=== PATIENT | female | born 1945 | race Caucasian/White ===

== ENCOUNTER 2017-06-30 09:38 | Outpatient (CLI) | payer MEDICARE, OTHER | END 2017-06-30 09:39 | disposition home or self-care (01) | LOC: BICRAD 09:38 | PROVIDERS: ATTEND Specialist | DX: R05 Cough (principal) | CPT/HCPCS: 71046 ==

== ENCOUNTER 2017-08-04 07:04 | Outpatient (CLI) | payer MEDICARE | END 2017-08-04 07:05 | disposition home or self-care (01) | LOC: BICULT 07:04 | PROVIDERS: ATTEND Internal Medicine Interventional Cardiology | DX: R10.9 Unspecified abdominal pain (principal) | CPT/HCPCS: 76700 ==

== ENCOUNTER 2018-04-29 09:27 | Outpatient (CLI) | payer MEDICARE | END 2018-04-29 09:28 | disposition home or self-care (01) | LOC: BICMAMMO 09:27 | PROVIDERS: ATTEND Specialist | DX: Z12.31 Encounter for screening mammogram for malignant neoplasm of breast (principal); Z80.3 Family history of malignant neoplasm of breast | CPT/HCPCS: 77063; 77067 ==

== ENCOUNTER 2018-10-23 09:49 | Outpatient (CLI) | payer MEDICARE ==
--- NOTE | 2018-10-23 10:27 | RAD ---
TWO VIEWS RIGHT HIP: COMPARISON: None. HISTORY: Right hip pain. Trochanteric bursitis. FINDINGS: Two views of the right hip show no evidence of acute fracture or dislocation. No degenerative change s are seen. No soft tissue swelling is present. IMPRESSION: Unremarkable exam. POS: [facility]AS[facility]
== END 2018-10-23 09:50 | disposition home or self-care (01) ==
LOC: BICRAD 09:49
PROVIDERS: ATTEND Internal Medicine Rheumatology
DX: M70.61 Trochanteric bursitis, right hip (principal)

== ENCOUNTER 2018-11-11 07:47 | Outpatient (CLI) | payer MEDICARE ==
--- NOTE | 2018-11-11 09:42 | MRI ---
MRI OF RIGHT HIP PERFORMED WITHOUT CONTRAST ENHANCEMENT: HISTORY: Right hip pain radiating down the right leg. Trochanteric bursitis. FINDINGS: The SI joints are symmetric in appearance. There are no signs of any insufficiency-type fractures or stress-type reaction. There is tendinosis of both hamstring tendon origins with low-grade tears seen bilaterally with some minimal fluid density signal change near the semimembranosis attachment of both hamstring tendon grou ps. The small field of view images of the right hip show some fairly minimal articular cartilage thinning . Hip labrum is not well assessed on this noncontrast study. I do not see any obvious hip labral te ar. Some minimal tendinosis of the gluteus medius tendon insertion is noted. No signs of any trochanteri c bursitis. No evidence for muscle strain. IMPRESSION: 1. Tendinopathy changes both hamstring tendon origins with some minimal fluid density signal change seen bilaterally suggesting some low-grade tearing probably on the basis of the tendinosis. 2. Minimal tendinosis changes of the gluteus medius tendon insertion on the greater trochanter. No signs of a trochanteric bursitis. POS: [facility]
== END 2018-11-11 07:48 | disposition home or self-care (01) ==
LOC: BICMRI 07:47
PROVIDERS: ATTEND Internal Medicine Rheumatology
DX: M70.61 Trochanteric bursitis, right hip (principal)

== ENCOUNTER 2019-03-02 07:42 | Outpatient (CLI) | payer MEDICARE ==
--- NOTE | 2019-03-02 09:25 | BD ---
DEXA BONE DENSITY STUDY: Date: 03/02/19 HISTORY: Osteoporosis screening. Age-related osteoporosis without current pathologic fracture. COMPARISON: None. FINDINGS: Lumbar Spine: BMD (g/cm2) L1 0.796 T-Score: -1.8 Z-Score: 0.3 L2 0.889 T-Score: -1.3 Z-Score: 1.0 L3 0.989 T-Score: -0.9 Z-Score: 1.5 L4 1.026 T-Score: -0.3 Z-Score: 2.1 L1-L4 0.932 T-Score: -1.0 Z-Score: 1.2 Left Femoral Neck: 0.482 T-Score: -3.3 Z-Score: -1.3 Total Femur: 0.691 T-Score: -2.1 Z-Score: -0.4 WHO Classification: Osteoporosis. 10 Year Fracture Risk: Major osteoporotic fracture: 32% Hip fracture: 12% IMPRESSION: Osteoporosis with fracture risk as above. POS: NATASHA
== END 2019-03-02 07:43 | disposition home or self-care (01) ==
LOC: BICMAMMO 07:42
PROVIDERS: ATTEND Internal Medicine Rheumatology
DX: M81.0 Age-related osteoporosis without current pathological fracture (principal)
CPT/HCPCS: 77080

== ENCOUNTER 2019-05-24 08:26 | Outpatient (CLI) | payer MEDICARE ==
--- NOTE | 2019-05-24 09:11 | MMO ---
Bilateral MAMMO Bilat Screen [facility]. CLINICAL HISTORY: Patient is 74 years old and is seen for screening. The patient has the following family history of breast cancer: mother, at age 49, malignant (generic). The patient has no personal history of cancer. The patient has a history of right Excisional Biopsy in 1989 - benign. VIEWS: The views performed were: bilateral craniocaudal with tomosynthesis and bilateral mediolateral oblique with tomosynthesis. FILMS COMPARED: The present examination has been compared to prior imaging studies performed at [facility] on 03/07/2015, 03/08/2016, 03/10/2017 and 04/29/2018. This study has been interpreted with the assistance of computer-aided detection. MAMMOGRAM FINDINGS: There are scattered fibroglandular densities. There are no suspicious masses, suspicious calcifications, or new areas of architectural distortion. IMPRESSION: THERE IS NO MAMMOGRAPHIC EVIDENCE OF MALIGNANCY. A ROUTINE FOLLOW-UP MAMMOGRAM IN 1 YEAR IS RECOMMENDED. THE RESULTS OF THIS EXAM WERE SENT TO THE PATIENT. ACR BI-RADS Category 1 - Negative MAMMOGRAPHY NOTE: 1. A negative mammogram report should not delay a biopsy if a dominant of clinically suspicious mass is present. 2. Approximately 10% to 15% of breast cancers are not detected by mammography. 3. Adenosis and dense breasts may obscure an underlying neoplasm. Reported by: ELOY VASQUEZ MD Electonically Signed: [id number]
== END 2019-05-24 08:27 | disposition home or self-care (01) ==
LOC: BICMAMMO 08:26
PROVIDERS: ATTEND Specialist
DX: Z12.31 Encounter for screening mammogram for malignant neoplasm of breast (principal); Z91.89 Other specified personal risk factors, not elsewhere classified; Z80.3 Family history of malignant neoplasm of breast
CPT/HCPCS: 77063; 77067

== ENCOUNTER 2019-07-08 13:52 | Outpatient (CLI) | payer MEDICARE ==
--- NOTE | 2019-07-08 14:26 | RAD ---
Lumbar spine 4 views: 07/08/2019 COMPARISON: None HISTORY: Spondylolisthesis FINDINGS: On the upright neutral lateral exam there is prominent anterolisthesis of L4 on L5 measurin g 1.4 cm. The flexion imaging demonstrates stable L4-5 anterolisthesis. This L4-5 anterolisthesis is not significantly changed on extension imaging either. There is disc space narrowing with degenera tive endplate change at the L4-5 level. There is also disc space narrowing and degenerative endplate change at L3-4. No acute fracture or evidence of dislocation. IMPRESSION: Multilevel lower lumbar spine degenerative change. 1.4 cm of anterolisthesis of L4 on L5 as above.
== END 2019-07-08 13:53 | disposition home or self-care (01) ==
LOC: RAD 13:52
PROVIDERS: ATTEND Nurse Practitioner Family
DX: M43.16 Spondylolisthesis, lumbar region (principal); M47.816 Spondylosis without myelopathy or radiculopathy, lumbar region
CPT/HCPCS: 72120

== ENCOUNTER 2020-01-07 07:01 | Outpatient (CLI) | payer MEDICARE, OTHER ==
[2020-01-07 10:49] LABS: Hemoglobin 12.6 g/dL (12.0-16.0); Mean Corpuscular HGB CONC 31.6 g/dL (32.0-36.0); Mean Platelet Volume 7.9 fL (7.4-10.4); Platelet Count 341 thou/uL (130-400); RBC Distribution Width 13.1 % (11.5-14.5); Red Blood Cell (RBC) Count 4.21 mill/uL (4.20-5.40); White Blood Cell (WBC) Count 5.6 thou/uL (4.8-10.8)
[2020-01-07 11:11] LABS: Anion Gap 10 mmol/L (10-20); BUN (Urea Nitrogen) 12 mg/dL (9.8-20.1); Calc. Creatinine Clearance 0 mL/min (70-130); Calcium 8.8 mg/dL (7.8-10.44); Carbon Dioxide 27 mmol/L (23-31); Chloride 106 mmol/L (98-107); Estimated GFR-MDRD 83; Glucose 82 mg/dL (83-110); Potassium 3.8 mmol/L (3.5-5.1); Sodium 139 mmol/L (136-145)
[2020-01-07 12:15] LABS: INR-International Normal Ratio 0.9; PTT 28.8 sec (22.9-36.1); Prothrombin Time 12.2 sec (12.0-14.7)
[2020-01-07 16:40] LABS: SARS-CoV-2 MS2 Positive; SARS-CoV-2 N Gene Negative; SARS-CoV-2 S Gene Negative; SARS-CoV-2 by NAA Not Detected (NotDetected); SARS-CoV-2 orf1ab Negative
== END 2020-01-07 07:02 | disposition home or self-care (01) ==
LOC: LABBT 07:01
PROVIDERS: ATTEND Surgery
DX: Z01.818 Encounter for other preprocedural examination (principal); Z20.828 Contact with and (suspected) exposure to other viral communicable diseases; M50.00 Cervical disc disorder with myelopathy, unspecified cervical region; M50.10 Cervical disc disorder with radiculopathy, unspecified cervical region; M48.02 Spinal stenosis, cervical region
CPT/HCPCS: 80048; 85027; 85610; 85730; 93005; U0003; 87635; 93010

== ENCOUNTER 2020-01-07 07:30 | Inpatient (IN) | payer MEDICARE ==
[2020-01-07 11:30] VITALS: BMI 26.4
[2020-01-11] MEDS ORDERED: Phenylephrine 10 MG/ML VIAL ONE (06:35)
[2020-01-11] MEDS ORDERED: Fentanyl 100 MCG/2 ML VIAL ONE ×3 (06:35→10:51)
[2020-01-11] MEDS ORDERED: Thrombin 5000 UNITS/5 ML VIAL ONE (06:41)
[2020-01-11] MEDS ORDERED: Sodium Chloride 0.9% 10 ML ONE (06:41)
[2020-01-11] MEDS ORDERED: Dexamethasone 20 MG/5 ML VIAL ONE (09:19)
[2020-01-11] MEDS ORDERED: Rocuronium Bromide 10 MG/ML (10ML VIAL) ONE (09:19)
[2020-01-11] MEDS ORDERED: PROPOFOL 200 MG/20 ML VIAL ONE (09:19)
[2020-01-11] MEDS ORDERED: EPHEDRINE 25 MG/5 ML SYRINGE ONE (09:19)
[2020-01-11] MEDS ORDERED: Ondansetron PF 4 MG/2 ML Vial ONE (09:19)
[2020-01-11] MEDS ORDERED: Lidocaine 1% PF 5 ML VIAL ONE (09:19)
[2020-01-11] MEDS ORDERED: SUGAMMADEX SODIUM 200 MG/2 ML VIAL ONE (09:28)
[2020-01-11] MEDS ORDERED: Meperidine HCl/PF 25 MG/ML VIAL SLOW IVP PRN (10:09)
[2020-01-11] MEDS ORDERED: Promethazine HCl 25 MG/ML VIAL IM PRN (10:09)
[2020-01-11] MEDS ORDERED: HYDROmorphone 2 MG/ML VIAL SLOW IVP PRN (10:09)
[2020-01-11] MEDS ORDERED: Ondansetron HCl/PF 4 MG/2 ML Vial IVP PRN (10:09)
[2020-01-11] MEDS ORDERED: Promethazine HCl 25 MG/ML VIAL SLOW IVP PRN (10:09)
[2020-01-11] MEDS ORDERED: diphenhydrAMINE 25 MG CAP PO PRN (10:18)
[2020-01-11] MEDS ORDERED: Fleet Enema 133 ML BOT PR PRN (10:18)
[2020-01-11] MEDS ORDERED: Ondansetron PF 4 MG/2 ML Vial IVP PRN (10:18)
[2020-01-11] MEDS ORDERED: tiZANidine HCl 4 MG TAB PO PRN (10:18)
[2020-01-11] MEDS ORDERED: Morphine 2 MG/ML VIAL SLOW IVP PRN (10:18)
[2020-01-11] MEDS ORDERED: Bisacodyl 10 MG SUPP PR PRN (10:18)
[2020-01-11] MEDS ORDERED: Acetaminophen 325 MG TAB PO PRN (10:18)
[2020-01-11] MEDS ORDERED: Milk Of Magnesia 30 ML UDCUP PO PRN (10:18)
[2020-01-11] MEDS ORDERED: traMADol HCl 50 MG TAB PO PRN (10:18)
[2020-01-11] MEDS ORDERED: Promethazine 25 MG TAB PO PRN (10:22)
[2020-01-11] MEDS: Sodium Chloride 0.9% 1,000 ML IV SCH (12:16)
[2020-01-11] MEDS ORDERED: Cepastat Lozenges 1 LOZ PO PRN (13:46)
[2020-01-11] MEDS: CEFAZOLIN 2 GM in Premix Bag 1 BAG IVPB SCH ×2 (16:22→22:15)
[2020-01-11] MEDS ORDERED: Rosuvastatin 20 MG TAB PO SCH (21:00)
[2020-01-11] MEDS: HYDROcodone/Acetaminophen 7.5/325 mg Tablet PO PRN (22:12)
[2020-01-12] MEDS: Sodium Chloride 0.9% 1,000 ML IV SCH (02:25)
[2020-01-12] MEDS: HYDROcodone/Acetaminophen 7.5/325 mg Tablet PO PRN (05:10)
[2020-01-12] MEDS ORDERED: Levothyroxine Sodium 25 MCG TAB PO SCH (06:00)
[2020-01-12] MEDS: CEFAZOLIN 2 GM in Premix Bag 1 BAG IVPB SCH (06:26)
[2020-01-12 07:40] VITALS: BP 127/74; TEMP 97.1
[2020-01-12] MEDS ORDERED: Losartan 25 MG TAB PO SCH (09:00)
[2020-01-12] MEDS ORDERED: Cholecalciferol 1,000 UNITS (25 MCG) TAB PO SCH (09:00)
[2020-01-12] MEDS ORDERED: Ascorbic Acid 500 mg Chewable Tablet PO SCH (09:00)
--- NOTE | 2020-01-12 09:16 | OP ---
DATE OF PROCEDURE: 01/11/2020 LOCATION: OR 12. 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 PROCEDURE PERFORMED: 1. Anterior C3-C4, C4-C5, and C5-C6 diskectomies. 2. Placement of interbody spacers, packed with local bone autograft, obtained from same incision of allograft. 3. C3-C4, C4-C5, C5-C6, all for arthrodesis (spacer separate from plate). 4. Use of operative microscope for microdissection. 5. Anterior cervical plate and screw fixation, C3, C4, C5, C6. DESCRIPTION OF PROCEDURE: After informed consent was obtained from the patient, the patient was brought to the OR. Proper patient, pause, and identification were carried out. She was placed under excellent general endotracheal anesthesia and positioned supine on the OR table. All appropriate points were padded. We identified the right anterior oblique celia to allow for approach at C3, C4, C5, C6 segments. This region was sterilely cleansed, prepared, and draped. Proper patient, pause, and identification were carried out. The wound was then opened with a combination of sharp, monopolar, and blunt dissection, proceeded medial to the right carotid sheath and lateral to the larynx and pharynx. We identified the prevertebral layer of deep cervical fascia and the longus colli muscles were swept laterally. Localization film confirmed our area of interest. We then performed the C3-C4 disk distraction. The microscope was brought in. Diskectomy at C3-4 was performed and diskectomy performed with spinal cord and C4 nerve root decompression. The endplates were prepared. Interbody spacer packed with graft was placed. This was then repeated at C4-C5 and at C5-C6 with freeing up of the C5 nerve roots and the spinal cord and C6 nerve roots and spinal cord at each segment. Copious irrigation occurred throughout as did maximizing hemostasis. We were satisfied with the reconstruction and we then placed a separate plate following removal of the microscope with fixation of the screws and final tightness at C3, C4, C5, C6. Copious irrigation occurred throughout and the wound was then closed in anatomic layers over a drain. The patient emerged from anesthesia. Job ID: [id number]
--- NOTE | 2020-01-12 09:20 | PRG ---
DATE OF SERVICE: 01/12/2020 SUBJECTIVE: Ms. Moore is doing well postoperative day #1 following C3-C6 ACDF. She has had resolution in her arm pain and improvement in her dexterity. Obviously, she has surgical pain. Plan is for discharge today. She has improved in regard to her neurological strength. Job ID: [id number]
== END 2020-01-12 10:45 | disposition home or self-care (01) | DRG 472 ==
LOC: SJJU 01-11 05:55 → SURG A 01-11 11:52
PROVIDERS: ADMIT Surgery; ATTEND Surgery
PROC: 0RG2070 Fusion of 2 or more Cervical Vertebral Joints with Autologous Tissue Substitute, Anterior Approach, Anterior Column, Open Approach (ICD-10-PCS; principal; 2020-01-11)
PROC: 0RB30ZZ Excision of Cervical Vertebral Disc, Open Approach (ICD-10-PCS; 2020-01-11)
DX: M48.02 Spinal stenosis, cervical region (principal); M50.022 Cervical disc disorder at C5-C6 level with myelopathy; M50.122 Cervical disc disorder at C5-C6 level with radiculopathy; I10 Essential (primary) hypertension; E78.5 Hyperlipidemia, unspecified; J30.2 Other seasonal allergic rhinitis; E03.9 Hypothyroidism, unspecified; M19.90 Unspecified osteoarthritis, unspecified site; F41.9 Anxiety disorder, unspecified; Z90.710 Acquired absence of both cervix and uterus; Z79.899 Other long term (current) drug therapy; Z79.890 Hormone replacement therapy
CPT/HCPCS: 76000; C1713; C1768; C1776; J0690; J1100; J2270; J2370; J2405; J2704; J3010; J3490

== ENCOUNTER 2020-01-28 11:12 | Inpatient (IN) | payer MEDICARE, OTHER ==
[2020-01-28 12:46] VITALS: BMI 25.9
[2020-01-28] MEDS ORDERED: Diphenoxylate HCl/Atropine Tablet PO PRN (12:58)
[2020-01-28] MEDS ORDERED: Sodium Chloride 0.9% 1,000 ML IV SCH (13:00)
[2020-01-28] MEDS ORDERED: Acetaminophen 325 MG TAB PO PRN (13:00)
[2020-01-28] MEDS ORDERED: Diphenoxylate HCl/Atropine Tablet PO SCH (13:00)
[2020-01-28] MEDS: Sodium Chloride 0.9% 1,000 ML IV SCH ×3 (14:30→22:00)
[2020-01-28 14:47] LABS: ALT (SGPT) 30 U/L (8-55); AST (SGOT) 35 U/L (5-34); Albumin 3.3 g/dL (3.4-4.8); Alkaline Phosphatase 113 U/L (40-110); Anion Gap 17 mmol/L (10-20); BUN (Urea Nitrogen) 28 mg/dL (9.8-20.1); Bilirubin, Total 0.4 mg/dL (0.2-1.2); Calc. Creatinine Clearance 23 mL/min (70-130); Calcium 7.2 mg/dL (7.8-10.44); Carbon Dioxide 19 mmol/L (23-31); Chloride 95 mmol/L (98-107); Estimated GFR-MDRD 23; Globulin 2.9 g/dL (2.4-3.5); Glucose 112 mg/dL (83-110); Potassium 3.4 mmol/L (3.5-5.1); Protein, Total 6.2 g/dL (6.0-8.3); Sodium 128 mmol/L (136-145)
[2020-01-28 15:00] LABS: Band 74 % (5-11); Hemoglobin 13.1 g/dL (12.0-16.0); Lymphocytes 2 % (21-51); MDiff Complete? YES; Mean Corpuscular HGB CONC 31.6 g/dL (32.0-36.0); Mean Corpuscular Hemoglobin 29.7 pg (27.0-31.0); Mean Corpuscular Volume 93.9 fL (78.0-98.0); Mean Platelet Volume 8.2 fL (7.4-10.4); Monocytes 8 % (0-10); Neutrophil 12 % (42-75); Platelet Count 468 thou/uL (130-400); Platelet Morphology Comment Appears Increased; Polychromasia SLIGHT = 2-3 cells (100X) (0-2/hpf); RBC Distribution Width 12.8 % (11.5-14.5); Reactive Lymphocytes 4 % (0-10); Red Blood Cell (RBC) Count 4.43 mill/uL (4.20-5.40); Reflex for Review?? YES
[2020-01-28 16:26] LABS: Bilirubin Negative (Negative); Blood, Urine Trace (Negative); Clarity Turbid (Clear); Glucose, Urine (Dipstick) Normal (Negative); Ketone, Urine Negative (Negative); Leukocyte 250 Leu/uL (Negative); Nitrite Negative (Negative); Protein, Urine (Dipstick) 50 mg/dL (Neg-Trace); RBC/HPF 0-3 HPF (0-3); Specific Gravity, Urine 1.016 (1.002-1.036); Squamous Epithelial 0-3 HPF (0-3); Transitional Epithelial 0-3 HPF (None Seen); Urobilinogen Normal mg/dL (Less than 2); WBC/HPF 21-50 HPF (0-3); pH, Urine 5.5 (5.0-9.0)
[2020-01-28 16:27] LABS: Bacteria/HPF 1+ HPF (None Seen)
--- NOTE | 2020-01-28 16:54 | RAD ---
Exam: Chest one view HISTORY:Dehydration Comparison: 06/30/2017 FINDINGS: Cardiac silhouette: Normal Aorta: Unremarkable Pulmonary vessels: Normal Costophrenic angles: Clear LUNGS: No masses or consolidation. Pneumothorax: None Osseous abnormalities: None IMPRESSION: No acute cardiopulmonary process.
[2020-01-28] MEDS: Ondansetron PF 4 MG/2 ML Vial IVP PRN (18:20)
[2020-01-29] MEDS: Sodium Chloride 0.9% 1,000 ML IV SCH ×4 (02:00→14:21)
--- NOTE | 2020-01-29 05:05 | HP ---
DATE OF OBSERVATION: 01/28/2020. CHIEF COMPLAINT: Dehydration. HISTORY OF PRESENT ILLNESS: The patient is a 74-year-old female who originally became ill on Friday earlier this week. She had nausea, vomiting, general weakness, diarrhea. She went to [facility]. There, she was found to be COVID-19 negative. They gave her Imodium and Zofran. Through the rest of the week she had waxing and waning diarrhea. Finally, she began to run a 101 fever consistently with general pain. Her nausea persisted and the diarrhea is 6-8 times a day. She became so weak. She came to Dr. Pop' office on the day of admission for evaluation. There in the office, she was found to be tachycardic, dry, hypotensive and requiring IV fluids. Therefore, she was placed in the hospital. PAST MEDICAL HISTORY: Significant for hypertension, vitamin D deficiency, hyperlipidemia, GERD, hypothyroidism. She also has severe central and neural foraminal stenosis involving C3 through C6. She also has osteoporosis, hypothyroidism. Psychiatrically she has a severe anxiety disorder. PAST SURGICAL HISTORY: Includes cataract removal as well as cervical surgery of her neck. PSYCHIATRIC HISTORY: As mentioned above is significant for severe anxiety disorder and depression. FAMILY HISTORY: Significant for high blood pressure, depression and vitamin D deficiency. SOCIAL HISTORY: She is . She has been a housewife. She never smoked, drank or used recreational drugs. ALLERGIES: TO CODEINE. REVIEW OF SYSTEMS: CONSTITUTIONAL: At the time of admission constitutionally, she is weak, fatigued, having had fever, vomiting, and diarrhea. HEENT: Denies drainage from eyes, ears, nose, or throat. CHEST: Denies shortness of breath or cough. CARDIOVASCULAR: Denies chest pain or palpitations. GI: Has had both nausea, vomiting, and diarrhea. : Denies dysuria or blood in urine or stool. MUSCULOSKELETAL: Generally weak in all major muscle groups. SKIN: No new rashes or lesions. NEUROLOGIC: She is exhausted, admits to headaches, but denies blurred vision, or trouble with mentation. PHYSICAL EXAMINATION: At the time of admission: VITAL SIGNS: Blood pressure 94/68, pulse 110, temperature 98.2, respirations 16, O2 saturation 99% on room air. GENERAL: This is a weak, lethargic, but responsive female. HEENT: Normocephalic, atraumatic. Pupils are equal, round, and reactive to light with arcus senilis bilaterally. TMs and nares clear. Pharynx is dry. Membranes are dry. NECK: Supple. CHEST: Clear to auscultation. BREASTS: Deferred. HEART: Regular rate and rhythm, tachycardic. ABDOMEN: Tender diffusely, but no specific point tenderness or organomegaly : Deferred. EXTREMITIES: Without clubbing, cyanosis, or edema. SKIN: With poor turgor. NEUROLOGIC: Cranial nerves are intact. Gait is weak. Mental status is baseline, nonfocal. Sensory exam is grossly intact. LABORATORY DATA: On admission, shows WBCs 15641, hemoglobin 13.1, hematocrit 41.5 with platelets of 468,000. She has significant bandemia. Sodium is 128, potassium 3.4, chloride 95, CO2 of 19, BUN 28, creatinine 2.12, glucose 112, calcium 7.2, AST elevated at 35, ALT 30, alkaline phosphatase elevated at 113. Urinalysis shows trace blood, leukocyte esterase of 250, WBCs 21-50. ASSESSMENT: 1. Dehydration with early sepsis. 2. Early sepsis. 3. Hyponatremia. 4. Hypokalemia. 5. Urinary tract infection, as probable source of sepsis. 6. Leukocytosis with bandemia. PLAN: Will be IV fluids. After cultures are taken, IV antibiotics. Symptomatic control of nausea, vomiting and diarrhea and serial re-evaluation. We will also repeat her COVID-19 test that has been negative from earlier this week. Job ID: [id number]
[2020-01-29] MEDS: Ondansetron PF 4 MG/2 ML Vial IVP PRN ×3 (05:09→20:29)
[2020-01-29 05:50] LABS: Anion Gap 15 mmol/L (10-20); BUN (Urea Nitrogen) 31 mg/dL (9.8-20.1); Calc. Creatinine Clearance 26 mL/min (70-130); Calcium 6.3 mg/dL (7.8-10.44); Carbon Dioxide 15 mmol/L (23-31); Chloride 101 mmol/L (98-107); Estimated GFR-MDRD 26; Glucose 130 mg/dL (83-110); Potassium 3.3 mmol/L (3.5-5.1); Sodium 128 mmol/L (136-145)
[2020-01-29 05:51] LABS: Band 52 % (5-11); Burr Cells MODERATE= 6-15 cells (100X) (0-1/hpf); Hemoglobin 13.1 g/dL (12.0-16.0); Lymphocytes 7 % (21-51); MDiff Complete? YES; Mean Corpuscular HGB CONC 33.3 g/dL (32.0-36.0); Mean Corpuscular Hemoglobin 31.3 pg (27.0-31.0); Monocytes 2 % (0-10); Neutrophil 38 % (42-75); Platelet Count 365 thou/uL (130-400); RBC Distribution Width 12.8 % (11.5-14.5); Reactive Lymphocytes 1 % (0-10); Red Blood Cell (RBC) Count 4.18 mill/uL (4.20-5.40); White Blood Cell (WBC) Count 18.9 thou/uL (4.8-10.8)
[2020-01-29] MEDS ORDERED: Sodium Chloride 0.9% 1,000 ML IV SCH (14:00)
[2020-01-29] MEDS ORDERED: Diphenoxylate HCl/Atropine Tablet PO SCH (14:00)
[2020-01-29] MEDS: NS 0.9% w/ 20 MEQ KCL 1,000 ML IV SCH ×2 (14:20→20:32)
[2020-01-29 14:56] LABS: SARS-CoV-2 MS2 Positive; SARS-CoV-2 N Gene Negative; SARS-CoV-2 S Gene Negative; SARS-CoV-2 by NAA Not Detected (NotDetected); SARS-CoV-2 orf1ab Negative
[2020-01-29] MEDS: cefTRIAXone\\ROCEPHIN 1 GM in Sodium Chloride 0.9% 100 ML IVPB SCH ×2 (23:22)
[2020-01-30] MEDS: NS 0.9% w/ 20 MEQ KCL 1,000 ML IV SCH ×3 (05:23→23:12)
[2020-01-30] MEDS: Levothyroxine Sodium 25 MCG TAB PO SCH (05:23)
[2020-01-30 06:15] LABS: Band 45 % (5-11); Hemoglobin 11.9 g/dL (12.0-16.0); Lymphocytes 3 % (21-51); MDiff Complete? YES; Mean Corpuscular HGB CONC 33.2 g/dL (32.0-36.0); Mean Corpuscular Hemoglobin 31.1 pg (27.0-31.0); Mean Corpuscular Volume 93.9 fL (78.0-98.0); Mean Platelet Volume 7.8 fL (7.4-10.4); Monocytes 9 % (0-10); Myelocyte 2 % (0-0); Neutrophil 41 % (42-75); Platelet Count 434 thou/uL (130-400); Red Blood Cell (RBC) Count 3.82 mill/uL (4.20-5.40); White Blood Cell (WBC) Count 17.4 thou/uL (4.8-10.8)
[2020-01-30 06:18] LABS: Anion Gap 13 mmol/L (10-20); BUN (Urea Nitrogen) 17 mg/dL (9.8-20.1); Calc. Creatinine Clearance 62 mL/min (70-130); Calcium 6.1 mg/dL (7.8-10.44); Carbon Dioxide 15 mmol/L (23-31); Cardiac Risk 3.1 (Less than 4.5); Chloride 108 mmol/L (98-107); Cholesterol 65 mg/dl (< 200 Desired); Estimated GFR-MDRD 71; Glucose 111 mg/dL (83-110); HDL Cholesterol 21 mg/dL (>60 Neg Risk); LDL Cholesterol, Calculated 28 mg/dL; Potassium 3.8 mmol/L (3.5-5.1); Sodium 132 mmol/L (136-145); Triglycerides 79 mg/dL (Less than 150)
[2020-01-30] MEDS: Ondansetron PF 4 MG/2 ML Vial IVP PRN (08:25)
[2020-01-30] MEDS ORDERED: Diphenoxylate HCl/Atropine Tablet PO SCH ×2 (10:00→10:30)
[2020-01-30] MEDS: hydrOXYzine 25 MG TAB PO SCH ×3 (12:35→19:40)
[2020-01-30] MEDS: Diphenoxylate HCl/Atropine Tablet PO SCH ×2 (14:43→19:40)
[2020-01-30] MEDS: Calcium Carbonate 500 MG ChewTAB PO SCH ×2 (14:43→19:39)
[2020-01-30] MEDS: Lactinex Tablet PO SCH ×2 (14:43→19:39)
[2020-01-30] MEDS: Rosuvastatin 20 MG TAB PO SCH (19:40)
[2020-01-30] MEDS: cefTRIAXone\\ROCEPHIN 1 GM in Sodium Chloride 0.9% 100 ML IVPB SCH (23:11)
[2020-01-31] MEDS: Levothyroxine Sodium 25 MCG TAB PO SCH (05:37)
[2020-01-31] MEDS: NS 0.9% w/ 20 MEQ KCL 1,000 ML IV SCH (05:38)
[2020-01-31 05:56] LABS: Hemoglobin 10.7 g/dL (12.0-16.0); Mean Corpuscular HGB CONC 32.7 g/dL (32.0-36.0); Mean Corpuscular Hemoglobin 30.8 pg (27.0-31.0); Mean Platelet Volume 7.4 fL (7.4-10.4); Platelet Count 428 thou/uL (130-400); RBC Distribution Width 13.2 % (11.5-14.5); Red Blood Cell (RBC) Count 3.48 mill/uL (4.20-5.40); White Blood Cell (WBC) Count 13.8 thou/uL (4.8-10.8)
[2020-01-31 06:11] LABS: Anion Gap 10 mmol/L (10-20); BUN (Urea Nitrogen) 7 mg/dL (9.8-20.1); Calc. Creatinine Clearance 89 mL/min (70-130); Calcium 6.1 mg/dL (7.8-10.44); Carbon Dioxide 17 mmol/L (23-31); Chloride 111 mmol/L (98-107); Estimated GFR-MDRD Greater than 90; Glucose 109 mg/dL (83-110); Sodium 134 mmol/L (136-145)
[2020-01-31 06:33] LABS: Band 42 % (5-11); Lymphocytes 6 % (21-51); MDiff Complete? YES; Monocytes 15 % (0-10); Myelocyte 1 % (0-0); Neutrophil 36 % (42-75)
[2020-01-31] MEDS ORDERED: Calcium Gluconate 4.6 MEQ, Admixture Fee 1 EACH in Sodium Chloride 0.9% 100 ML IVPB SCH (07:53)
[2020-01-31] MEDS ORDERED: NS 0.9% w/ 20 MEQ KCL 1,000 ML IV SCH (08:15)
[2020-01-31] MEDS: Lactinex Tablet PO SCH ×3 (08:52→20:48)
[2020-01-31] MEDS: Diphenoxylate HCl/Atropine Tablet PO SCH (08:52)
[2020-01-31] MEDS: Calcium Carbonate 500 MG ChewTAB PO SCH ×3 (08:52→20:48)
[2020-01-31] MEDS: hydrOXYzine 25 MG TAB PO PRN ×2 (09:15→22:09)
--- NOTE | 2020-01-31 14:20 | RAD ---
TWO VIEW ABDOMEN: Supine and upright views obtained. HISTORY: Abdominal pain with distention and diarrhea. FINDINGS: Scattered stool and gas in the colon appears unremarkable. There are gas-filled mildly distended loo ps of small bowel. No free air. No mass effect. IMPRESSION: Increased small bowel gas with mild small bowel distention. Findings are nonspecific and could repre sent gastroenteritis given the history of diarrhea. Suggest followup. POS: OFF
[2020-01-31] MEDS: metroNIDAZOLE 500 MG in Premix Bag 1 BAG IVPB SCH ×2 (14:59→22:08)
[2020-01-31] MEDS: Rosuvastatin 20 MG TAB PO SCH (20:48)
[2020-02-01] MEDS: metroNIDAZOLE 500 MG in Premix Bag 1 BAG IVPB SCH ×3 (05:25→22:05)
[2020-02-01] MEDS: Levothyroxine Sodium 25 MCG TAB PO SCH (05:26)
[2020-02-01 05:53] LABS: #Eosinphils 0.1 thou/uL (0.0-0.7); #Lymphocytes 0.8 thou/uL (1.20-3.40); #Monocytes 0.8 thou/uL (0.11-0.59); #Neutrophils 10.4 thou/uL (1.40-6.50); %Basophils 0.1 % (0.0-1.0); %Eosinophils 1.2 % (0.0-10.0); %Lymphocytes 6.8 % (21.0-51.0); %Monocytes 6.9 % (0.0-10.0); Mean Corpuscular HGB CONC 32.2 g/dL (32.0-36.0); Mean Corpuscular Hemoglobin 30.4 pg (27.0-31.0); Mean Corpuscular Volume 94.5 fL (78.0-98.0); Platelet Count 488 thou/uL (130-400); RBC Distribution Width 13.3 % (11.5-14.5); Red Blood Cell (RBC) Count 3.62 mill/uL (4.20-5.40); White Blood Cell (WBC) Count 12.2 thou/uL (4.8-10.8)
--- NOTE | 2020-02-01 06:02 | CON ---
DATE OF CONSULTATION: 01/31/2020 CONSULTING PHYSICIAN: Dr. Moncho Pop. REASON FOR CONSULT: Diarrhea. HISTORY OF PRESENT ILLNESS: Ms. Moore is a 74-year-old female, who was admitted to the hospital on Friday evening for dehydration and diarrheal illness. She had a neck surgery for anterior cervical fusion back on the of this month and was recovering well from that when last weekend, she began to have acute onset of diarrhea. On Friday, she became more ill. She basically had nausea, vomiting, and diarrhea with watery diarrhea and was having to have emesis and diarrhea at the same time. She also went to [facility] and she was given some Imodium and Zofran and told she had something viral most likely. She had negative COVID test there. Apparently, for the week she had waxing and waning diarrhea up to 5 or 6 times a day. She began to have fever 101, consistent with general pain and some mild protuberance, and she saw Dr. Pop in the office on Friday and he sent her to the emergency room secondary to tachycardia and mild hypertension. Since she has been here, she had a leukocytosis on presentation and acute renal insufficiency which have both improved. Her tachycardia has improved as is her blood pressure. Stool was checked for routine culture, which so far is just showing normal jonn. Campylobacter and shiga toxins were negative. Nothing else it seems was checked. She was placed on Rocephin. Overall, she is better and eating a regular diet now and is having less diarrhea, having a little bit of loose stool this morning and one last night, but she is also getting Imodium 3 times a day. PAST MEDICAL HISTORY: Hypertension; vitamin D deficiency; hyperlipidemia; reflux; hypothyroidism; neural foraminal stenosis, C3 through C8 with recent anterior cervical fusion; osteoporosis; also anxiety disorder. PAST SURGICAL HISTORY: Cataract removal, cervical neck surgery. She reports she also had a bilateral tubal ligation, appendectomy, and hysterectomy. PAST PSYCHIATRIC HISTORY: Anxiety. FAMILY HISTORY: High blood pressure, depression, vitamin D deficiency. No family history of colorectal cancer or liver disease. SOCIAL HISTORY: The patient is . Her is at bedside. She does not smoke, drink, or use drugs. ALLERGIES: CODEINE. MEDICATIONS: At home; 1. Benicar. 2. Vitamin D. 3. Vitamin C. 4. Sertraline. 5. P.r.n. Phenergan. 6. Omeprazole. 7. Atarax for anxiety. 8. Levothyroxine. Medications here; 1. Acetaminophen. 2. Acidophilus. 3. Tums. 4. Rocephin 1 g daily. 5. Lomotil 3 times a day, scheduled. 6. Atarax. 7. Synthroid. 8. Protonix. 9. Normal saline with 20 K replacement given. 10. Crestor. 11. Zoloft. REVIEW OF SYSTEMS: Negative for rashes, myalgias, or arthralgias. Negative for going home with antibiotics. Negative for prior C diff infections. Negative for previous colonoscopy. Negative for melena, hematochezia, or hematemesis. Negative for previous bowel obstructions. Negative for weight loss, anorexia, or change in bowel or appetite or diet prior to this acute event. Negative for chest pain, shortness of breath, dyspnea on exertion. Negative for dysphagia or odynophagia. She does complain that her mouth is somewhat dry, but she thinks it is from taking the Atarax last night. : Negative for dysuria, frequency, or urgency. NEUROLOGIC: Negative for focal weaknesses, seizures, headaches. Negative for vision change. PHYSICAL EXAMINATION: VITAL SIGNS: Temperature 98.3, she has been afebrile since admission. Pulse is 94, it is going up to 100 today. Blood pressure 154/69. GENERAL: She is resting in bed. She has a tray of food, she is eating somewhat. HEENT: Mouth is dry. NECK: Supple without adenopathy. There are no oral lesions. There is no supra- or infraclavicular adenopathy. LUNGS: Clear. HEART: Regular rate and rhythm without clicks or murmurs. ABDOMEN: Protuberant, somewhat firm and a little bit tympanitic, but there is no rebound. There is no guarding. There is no masses palpated. There is no palpable hepatosplenomegaly. There is no evidence of hernias at her incision sites or inguinal areas. RECTAL: Reveals brown liquid stool with no blood grossly. EXTREMITIES: Reveal no clubbing, cyanosis, or edema. SKIN: Turgor is good. LABORATORY STUDIES: White count was 21,000 on admission, it is 13.4 today, it was 17.4 yesterday. Hemoglobin is 10.7, down from 13 on admission. On January 06 it was 12. Platelet count is elevated at 428, had been normal back at time of her surgery. She did have 42% bands which persisted today. INR is normal. Sodium 134, potassium 4, BUN and creatinine are 7 and 0.5. On admission, her creatinine was 2.12. AST 35, ALT 30, albumin is 3.3. On admission, TSH was normal. Microbiology; blood cultures negative. Campylobacter negative. Shiga toxin negative. Stool culture is pending. ASSESSMENT: Acute diarrheal illness beginning last Friday with nausea and vomiting with development of dehydration and tachycardia and by her report of fever. She had no sick contacts at home. The only instance has been an anterior cervical fusion 3 weeks ago, at which time she was in the hospital, but had no complications with that procedure. She has been on no recent antibiotics, but possibly prophylactic antibiotics at that time per report. The illness progressed to the point where she is dehydrated with acute renal insufficiency on admission. She also had elevated platelet count, significant bandemia. Rapid screens for stool for Campylobacter and shiga toxins are negative, culture still pending. She is on Rocephin. She is somewhat better in the fact that she is having less diarrhea and leukocytosis improved, but she still has a significant bandemia and thrombocytosis indicating ongoing inflammation. She has a protuberant abdomen, which is concerning to me, but she is nontender. RECOMMENDATIONS: 1. Rule out C diff. She had antecedent antibiotics 3 weeks ago. 2. Get a two-view abdomen. 3. We will hold the Imodium for right now. 4. We will add Flagyl and change her antibiotic to Levaquin. We will follow along with you. Job ID: [id number]
[2020-02-01 06:08] LABS: Phosphorus 1.4 mg/dL (2.3-4.7)
[2020-02-01 06:11] LABS: Anion Gap 10 mmol/L (10-20); BUN (Urea Nitrogen) 7 mg/dL (9.8-20.1); Calc. Creatinine Clearance 91 mL/min (70-130); Calcium 7.1 mg/dL (7.8-10.44); Carbon Dioxide 21 mmol/L (23-31); Chloride 107 mmol/L (98-107); Estimated GFR-MDRD Greater than 90; Glucose 112 mg/dL (83-110); Potassium 4.2 mmol/L (3.5-5.1); Sodium 134 mmol/L (136-145)
[2020-02-01] MEDS: Calcium Carbonate 500 MG ChewTAB PO SCH ×3 (10:01→20:52)
[2020-02-01] MEDS: Lactinex Tablet PO SCH ×3 (11:41→20:51)
[2020-02-01] MEDS: Vancomycin HCl 25 MG/ML Oral PO SCH ×2 (18:31→22:04)
--- NOTE | 2020-02-01 19:55 | PRG ---
DATE OF SERVICE: 02/01/2020 SUBJECTIVE: Ms. Moore has had improvement in her diarrhea today. She has less abdominal discomfort. She is still having liquidy diarrhea, however. OBJECTIVE: VITAL SIGNS: Temperature 98.4, pulse 94, and blood pressure 143/79. GENERAL: She is in no acute distress. Alert and oriented x3. LUNGS: Clear to auscultation bilaterally. HEART: Regular rate and rhythm without murmur. ABDOMEN: Soft. Mild tenderness diffusely without guarding. Bowel sounds are present. EXTREMITIES: No lower extremity edema. LABORATORY DATA: White blood cell count 12.2, down from 13.8 yesterday, which was down from 21 a few days before that. Creatinine 0.54. IMPRESSION: Clostridium difficile colitis. Her stool was positive for Clostridium difficile antigen and toxin. She was started on vancomycin orally this afternoon. She did receive ceftriaxone originally on presentation and fluoroquinolone yesterday and today, which could delay the response of her C diff treatment. RECOMMENDATIONS: 1. Continue oral vancomycin. 2. Continue metronidazole IV for now. 3. She is on Acidophilus and Florastor. 4. As her diarrhea improves, the metronidazole can likely be discontinued and she can just be discharged on the vancomycin alone. This will be determined based on how her diarrhea does over the next few days. Job ID: [id number]
[2020-02-01] MEDS: Saccharomyces boulardii 250 MG CAP PO SCH (20:52)
[2020-02-01] MEDS: Rosuvastatin 20 MG TAB PO SCH (20:52)
[2020-02-01] MEDS: hydrOXYzine 25 MG TAB PO PRN (22:05)
[2020-02-02] MEDS: Vancomycin HCl 25 MG/ML Oral PO SCH ×4 (04:17→22:16)
[2020-02-02] MEDS: Levothyroxine Sodium 25 MCG TAB PO SCH (05:42)
[2020-02-02] MEDS: metroNIDAZOLE 500 MG in Premix Bag 1 BAG IVPB SCH ×3 (05:42→21:06)
[2020-02-02 06:32] LABS: Anion Gap 12 mmol/L (10-20); BUN (Urea Nitrogen) 6 mg/dL (9.8-20.1); Calc. Creatinine Clearance 98 mL/min (70-130); Carbon Dioxide 20 mmol/L (23-31); Chloride 104 mmol/L (98-107); Estimated GFR-MDRD Greater than 90; Glucose 116 mg/dL (83-110); Potassium 3.6 mmol/L (3.5-5.1); Sodium 132 mmol/L (136-145)
[2020-02-02 06:41] LABS: Band 43 % (5-11); Eosinophils 3 % (0-10); Hemoglobin 11.8 g/dL (12.0-16.0); Lymphocytes 5 % (21-51); MDiff Complete? YES; Mean Corpuscular Hemoglobin 30.7 pg (27.0-31.0); Mean Platelet Volume 7.1 fL (7.4-10.4); Metamyelocyte 1 % (0-0); Monocytes 8 % (0-10); Neutrophil 40 % (42-75); Platelet Count 533 thou/uL (130-400); Platelet Morphology Comment Appears Increased; RBC Distribution Width 13.3 % (11.5-14.5); Red Blood Cell (RBC) Count 3.85 mill/uL (4.20-5.40)
[2020-02-02] MEDS: NS 0.9% w/ 20 MEQ KCL 1,000 ML IV SCH ×3 (09:07→16:18)
[2020-02-02] MEDS: Saccharomyces boulardii 250 MG CAP PO SCH ×2 (09:09→21:06)
[2020-02-02] MEDS: Famotidine 20 MG TAB PO SCH ×2 (09:10→21:06)
[2020-02-02] MEDS: Calcium Carbonate 500 MG ChewTAB PO SCH ×3 (09:10→21:06)
[2020-02-02] MEDS: Lactinex Tablet PO SCH ×3 (09:13→21:06)
[2020-02-02] MEDS ORDERED: Calcium Chloride 13.6 MEQ in Sodium Chloride 0.9% 100 ML IVPB SCH ×2 (10:15→15:45)
[2020-02-02] MEDS: Calcium Gluc 4.6 MEQ/10 ML (100 MG/ML) SLOW IVP SCH ×3 (10:57→22:17)
--- NOTE | 2020-02-02 15:57 | PRG ---
DATE OF SERVICE: 02/02/2020 REASON FOR CONSULTATION: Clostridium difficile colitis. SUBJECTIVE: The patient states that she continues to have multiple bowel movements over the last 24 hours, but have significantly decreased in terms of the volume of stool expressed when she defecates. She also describes that her abdominal discomfort is also improved with her current abdominal pain reaching a severity of 5/10. Her stools still have not solidified with more semi-solid bowel movements within the last 12 hours. Otherwise, she denies any nausea, vomiting, fevers, chills, hematemesis, melena, hematochezia. OBJECTIVE: VITAL SIGNS: Temperature 98, pulse 94, blood pressure 136/79, respiratory rate 16, saturating 98% on room air. GENERAL: The patient was lying in bed, in no acute distress. Alert and oriented x4. CARDIOVASCULAR: Regular rate and rhythm. RESPIRATORY: Clear to auscultation bilaterally. ABDOMEN: Normoactive bowel sounds. Soft, nondistended. Tenderness to palpation in the midepigastric and left upper quadrant only. EXTREMITIES: No cyanosis, clubbing, or edema. LABORATORY DATA: CBC with a white blood cell count of 14, hemoglobin 11.8, hematocrit 35.8, platelets 533. Chemistry with a sodium of 132, potassium 3.6, chloride 100, CO2 of 20, BUN 6, creatinine 0.5, glucose 116. IMAGING DATA: No current GI imaging is available for review. IMPRESSION: Clostridium difficile colitis. The patient initially presented with increased diarrhea and abdominal pain with stool studies positive for Clostridium difficile antigen and toxin. She was started on both oral vancomycin and metronidazole therapy and responding well to therapy thus far. RECOMMENDATIONS: 1. Would continue oral vancomycin 125 mg every 6 hours in addition to IV metronidazole 500 mg three times daily as part of treatment for C diff. 2. Continue probiotic administration as adjunctive therapy. 3. Would transfer the patient from a PPI (which can predispose to C diff) to an H2 john during this hospitalization and would likely continue in an outpatient setting. 4. Pain control per primary team. Given the patient's decreased stool volume and improvement in her abdominal pain, she is responding well to current antibiotic therapy. We will sign off at this time. Please call with any questions. Job ID: [id number]
[2020-02-02] MEDS: Diphenoxylate HCl/Atropine Tablet PO PRN (16:08)
[2020-02-02] MEDS: Calcium Gluconate 4.6 MEQ in Sodium Chloride 0.9% 100 ML IVPB SCH ×2 (17:14→22:17)
[2020-02-02] MEDS: Rosuvastatin 20 MG TAB PO SCH (21:06)
[2020-02-02] MEDS: hydrOXYzine 25 MG TAB PO PRN (22:23)
[2020-02-03] MEDS: Diphenoxylate HCl/Atropine Tablet PO PRN (00:47)
[2020-02-03] MEDS: NS 0.9% w/ 20 MEQ KCL 1,000 ML IV SCH (00:48)
[2020-02-03] MEDS: Vancomycin HCl 25 MG/ML Oral PO SCH ×4 (04:28→21:23)
[2020-02-03] MEDS: metroNIDAZOLE 500 MG in Premix Bag 1 BAG IVPB SCH ×3 (05:43→17:16)
[2020-02-03] MEDS: Levothyroxine Sodium 25 MCG TAB PO SCH (05:43)
[2020-02-03 06:43] LABS: #Eosinphils 0.2 thou/uL (0.0-0.7); #Lymphocytes 1.3 thou/uL (1.20-3.40); #Monocytes 1.3 thou/uL (0.11-0.59); #Neutrophils 11.1 thou/uL (1.40-6.50); %Basophils 0.1 % (0.0-1.0); %Eosinophils 1.2 % (0.0-10.0); %Lymphocytes 9.4 % (21.0-51.0); %Monocytes 9.3 % (0.0-10.0); Hemoglobin 12.1 g/dL (12.0-16.0); Mean Corpuscular HGB CONC 33.1 g/dL (32.0-36.0); Mean Corpuscular Hemoglobin 30.9 pg (27.0-31.0); Mean Corpuscular Volume 93.4 fL (78.0-98.0); Mean Platelet Volume 7.3 fL (7.4-10.4); Platelet Count 588 thou/uL (130-400); RBC Distribution Width 13.3 % (11.5-14.5); Red Blood Cell (RBC) Count 3.92 mill/uL (4.20-5.40); White Blood Cell (WBC) Count 13.9 thou/uL (4.8-10.8)
[2020-02-03 07:00] LABS: Anion Gap 12 mmol/L (10-20); BUN (Urea Nitrogen) 5 mg/dL (9.8-20.1); Calc. Creatinine Clearance 93 mL/min (70-130); Calcium 7.6 mg/dL (7.8-10.44); Carbon Dioxide 21 mmol/L (23-31); Chloride 105 mmol/L (98-107); Estimated GFR-MDRD Greater than 90; Glucose 119 mg/dL (83-110); Potassium 4.4 mmol/L (3.5-5.1); Sodium 134 mmol/L (136-145)
[2020-02-03] MEDS: Famotidine 20 MG TAB PO SCH ×2 (10:04→21:21)
[2020-02-03] MEDS: Calcium Carbonate 500 MG ChewTAB PO SCH ×3 (10:04→21:20)
[2020-02-03] MEDS: Lactinex Tablet PO SCH ×3 (10:05→21:21)
[2020-02-03] MEDS: Saccharomyces boulardii 250 MG CAP PO SCH ×2 (10:07→21:21)
--- NOTE | 2020-02-03 11:47 | PRG ---
DATE OF SERVICE: 02/03/2020 SUBJECTIVE: Ms. Moore's pain is better, but she is still having loose stools about every 4 hours. OBJECTIVE: VITAL SIGNS: Temperature is 98, pulse 84, blood pressure 152/80. GENERAL: She is alert and oriented. LUNGS: Clear. HEART: Regular rate and rhythm. ABDOMEN: Still slightly protuberant but a little bit softer. She has scant bowel sounds. EXTREMITIES: No clubbing, cyanosis, or edema. LABORATORY DATA: White count is down to 13.9 from 14 yesterday, she was 18.9 on the . Platelet count is still elevated at 588. She has 80% segs. No bands counted today but yesterday were at 43%. Sodium 134, potassium 4.1, chloride 105, BUN and creatinine are 5 and 0.53. Albumin was 3.3 on the . Abdominal x-ray on the did show small bowel distention. ASSESSMENT: Severe Clostridium difficile colitis, improving but slowly. RECOMMENDATION: 1. Lactose-free diet. 2. Continue IV Flagyl and p.o. vancomycin. We will increase p.o. vancomycin from 125 to 250 q.i.d. She is on a probiotic as well. We will check an albumin as she may have profound albumin wasting, which may need to be repleted. She may be developing some 3rd spacing of fluid. We will follow. Job ID: [id number]
[2020-02-03] MEDS ORDERED: CALCIUM GLUCONATE IVPB SCH (14:00)
[2020-02-03] MEDS ORDERED: ADMIXTURE FEE IVPB SCH (14:00)
[2020-02-03 15:14] LABS: Routine O & P Final report (.)
[2020-02-03] MEDS: CALCIUM GLUCONATE IVPB SCH ×2 (15:39→21:20)
[2020-02-03] MEDS: SODIUM CHLORIDE 0.9% IVPB SCH ×2 (15:39→21:20)
[2020-02-03] MEDS: Rosuvastatin 20 MG TAB PO SCH (21:21)
[2020-02-03] MEDS: hydrOXYzine 25 MG TAB PO PRN (21:49)
[2020-02-04] MEDS: metroNIDAZOLE 500 MG in Premix Bag 1 BAG IVPB SCH ×3 (01:09→18:12)
[2020-02-04] MEDS: SODIUM CHLORIDE 0.9% IVPB SCH ×4 (01:10→21:09)
[2020-02-04] MEDS: CALCIUM GLUCONATE IVPB SCH ×4 (01:10→21:09)
[2020-02-04] MEDS: Vancomycin HCl 25 MG/ML Oral PO SCH ×4 (04:01→21:31)
[2020-02-04 05:45] LABS: Anion Gap 10 mmol/L (10-20); BUN (Urea Nitrogen) 5 mg/dL (9.8-20.1); Calc. Creatinine Clearance 93 mL/min (70-130); Calcium 7.3 mg/dL (7.8-10.44); Carbon Dioxide 22 mmol/L (23-31); Chloride 104 mmol/L (98-107); Estimated GFR-MDRD Greater than 90; Glucose 118 mg/dL (83-110); Potassium 3.7 mmol/L (3.5-5.1); Sodium 132 mmol/L (136-145)
[2020-02-04] MEDS: Levothyroxine Sodium 25 MCG TAB PO SCH ×2 (05:57→05:58)
[2020-02-04 06:08] LABS: Band 33 % (5-11); Eosinophils 1 % (0-10); Hemoglobin 13.1 g/dL (12.0-16.0); Lymphocytes 13 % (21-51); MDiff Complete? YES; Mean Corpuscular HGB CONC 32.7 g/dL (32.0-36.0); Mean Corpuscular Hemoglobin 30.7 pg (27.0-31.0); Mean Corpuscular Volume 93.9 fL (78.0-98.0); Mean Platelet Volume 7.2 fL (7.4-10.4); Monocytes 7 % (0-10); Neutrophil 44 % (42-75); Platelet Count 695 thou/uL (130-400); Platelet Morphology Comment Appears Increased; RBC Distribution Width 13.4 % (11.5-14.5); RBC Morphology Normal; Reactive Lymphocytes 2 % (0-10); Red Blood Cell (RBC) Count 4.28 mill/uL (4.20-5.40); White Blood Cell (WBC) Count 13.1 thou/uL (4.8-10.8)
[2020-02-04] MEDS: Calcium Carbonate 500 MG ChewTAB PO SCH ×3 (08:56→21:10)
[2020-02-04] MEDS: Lactinex Tablet PO SCH ×2 (08:56→21:10)
[2020-02-04] MEDS: Saccharomyces boulardii 250 MG CAP PO SCH ×2 (08:57→21:10)
[2020-02-04] MEDS: Famotidine 20 MG TAB PO SCH ×2 (08:57→21:09)
[2020-02-04] MEDS: Albumin 25% 25 GM/100 ML BOT IVPB SCH ×4 (11:14→22:40)
--- NOTE | 2020-02-04 16:04 | PRG ---
DATE OF SERVICE: 02/04/2020 SUBJECTIVE: Amy Moore has had 4 bowel movements today. She states the volume is much less than yesterday, although she has had some nausea. OBJECTIVE: VITAL SIGNS: Temperature is 98, pulse is still 97 to 100, blood pressure is 126/72. LUNGS: Clear. HEART: Regular rate and rhythm. ABDOMEN: Slightly protuberant. LABORATORY DATA: White count is 13.1, hemoglobin 13.1, platelet count 695. She still has 35% bands. Sodium 132, potassium 3.7, BUN and creatinine are 5 and 0.53, albumin is 2.2. ASSESSMENT: 1. Severe Clostridium difficile colitis, improving. 2. Leukocytosis and thrombocytosis indicating significant inflammation persists. RECOMMENDATIONS: Increase vancomycin to 250 q.i.d. Continue IV prednisone. We will start her on Lovenox for DVT prophylaxis as with her inflammatory state, she is high risk for that. If we do not start to see a drop in white count and thrombocytosis in the next day or so, we are going to need a CAT scan of her belly. Job ID: [id number]
[2020-02-04] MEDS: Diphenoxylate HCl/Atropine Tablet PO PRN (21:10)
[2020-02-04] MEDS: Rosuvastatin 20 MG TAB PO SCH (21:10)
[2020-02-04] MEDS: Enoxaparin Sodium 40 MG/0.4 ML SYRINGE SC SCH (21:11)
[2020-02-04] MEDS: hydrOXYzine 25 MG TAB PO PRN (22:39)
[2020-02-05] MEDS: metroNIDAZOLE 500 MG in Premix Bag 1 BAG IVPB SCH ×3 (00:58→16:39)
[2020-02-05] MEDS: CALCIUM GLUCONATE IVPB SCH ×4 (02:16→20:31)
[2020-02-05] MEDS: SODIUM CHLORIDE 0.9% IVPB SCH ×4 (02:16→20:31)
[2020-02-05] MEDS: Vancomycin HCl 25 MG/ML Oral PO SCH ×4 (04:28→20:31)
[2020-02-05 06:07] LABS: #Basophils 0.1 thou/uL (0.0-0.2); #Eosinphils 0.3 thou/uL (0.0-0.7); #Lymphocytes 1.2 thou/uL (1.20-3.40); #Monocytes 1.2 thou/uL (0.11-0.59); #Neutrophils 10.4 thou/uL (1.40-6.50); %Basophils 0.5 % (0.0-1.0); %Eosinophils 2.3 % (0.0-10.0); %Lymphocytes 8.8 % (21.0-51.0); %Neutrophils 79.5 % (42.0-75.0); Hemoglobin 11.3 g/dL (12.0-16.0); Mean Corpuscular HGB CONC 32.6 g/dL (32.0-36.0); Mean Corpuscular Hemoglobin 30.3 pg (27.0-31.0); Mean Corpuscular Volume 93.2 fL (78.0-98.0); Mean Platelet Volume 6.6 fL (7.4-10.4); Platelet Count 644 thou/uL (130-400); RBC Distribution Width 13.2 % (11.5-14.5); Red Blood Cell (RBC) Count 3.74 mill/uL (4.20-5.40)
[2020-02-05 06:28] LABS: Anion Gap 11 mmol/L (10-20); BUN (Urea Nitrogen) 4 mg/dL (9.8-20.1); Calc. Creatinine Clearance 98 mL/min (70-130); Calcium 7.3 mg/dL (7.8-10.44); Carbon Dioxide 21 mmol/L (23-31); Chloride 107 mmol/L (98-107); Estimated GFR-MDRD Greater than 90; Glucose 110 mg/dL (83-110); Potassium 3.4 mmol/L (3.5-5.1); Sodium 136 mmol/L (136-145)
[2020-02-05] MEDS: Lactinex Tablet PO SCH ×3 (09:04→21:13)
[2020-02-05] MEDS: Albumin 25% 25 GM/100 ML BOT IVPB SCH ×4 (09:04→20:32)
[2020-02-05] MEDS: Famotidine 20 MG TAB PO SCH ×2 (09:04→20:30)
[2020-02-05] MEDS: Calcium Carbonate 500 MG ChewTAB PO SCH ×3 (09:04→20:30)
[2020-02-05] MEDS: Saccharomyces boulardii 250 MG CAP PO SCH ×2 (09:05→20:30)
[2020-02-05] MEDS ORDERED: Lorazepam 2 MG/ML VIAL SLOW IVP PRN (09:59)
[2020-02-05] MEDS ORDERED: Iopamidol-370 76% 500 ML 1 ML ONE (13:42)
--- NOTE | 2020-02-05 13:46 | CT ---
CT ABDOMEN AND PELVIS WITH IV CONTRAST 02/05/2020 CLINICAL INFORMATION: Patient with history of C. Difficile for one week with excessive bowel movements. COMPARISON: None. Technique: Multiple contiguous axial CT images are obtained through the abdomen and pelvis with IV contrast. Cor onal reformatted images are provided. FINDINGS: Lower Chest: Small bilateral pleural effusions and associated parenchymal densities are seen likely d ue to associated atelectasis greater on the left. Vessels: Vascular calcifications are seen in the abdominal aorta and iliac arteries. Abdomen: Portal vein:Patent Gallbladder: Mildly distended measuring 9.4 cm in length. Liver: within normal limits. Spleen: Subcentimeter subtle low density area medial aspect body of the spleen which is too small to further characterize. Pancreas: within normal limits. Adrenals: within normal limits. Kidneys: Subcentimeter too small to characterize hypodense lesions are seen in the midportion each ki dney and inferior pole right kidney which are too small to further characterize. There is no hydronephrosis. Bowel: There is diffuse and significant wall thickening involving the colon extending from the cecum to the rectum with greater degree of significant bowel wall thickening involving the ascending colon. These findings are likely attributable pseudomembranous colitis given patient's clinical diagn osis. Loops of opacified small bowel are normal in caliber. A small hiatal hernia is present. Colonic diverticula are seen involving the sigmoid colon. Gas densities adjacent to the sigmoid colon are thought to be related to colonic diverticuli as opposed to areas of microperforation. Appendix: Not visualized. Peritoneum: There is a [id number] amount of intraperitoneal free fluid seen in the abdomen and pelvis. No fluid collection is seen. Mesentery and Retroperitoneum: No enlarged mesenteric or retroperitoneal lymph nodes. Abdominal Wall: Small fat-containing umbilical hernia is present. Focus of subcutaneous gas is seen i n the right anterior abdominal wall adipose layer likely due to recent injection. There is mild subcutaneous edema suggesting anasarca. Pelvis: Reproductive Organs: Evidence of hysterectomy. Bladder: within normal limits. Bones: Degenerative changes are seen in the spine. There is grade 1 anterolisthesis of L4 on L5 measu ring 7 mm. Sclerotic density is seen within the left aspect of the sacrum demonstrating characteristics most suggestive of a bone island. IMPRESSION: 1. Diffuse wall thickening involving the colon from the cecum to the rectum with greater degree of magi wel wall thickening involving the ascending colon. Findings are likely attributable to pseudomembranous colitis given patient's clinical history of C. Difficile. A few punctate gas densiti es are seen immediately adjacent to the sigmoid colon which are most likely attributable to colonic diverticuli as opposed to microperforation in this region. 2. Small bilateral pleural effusions. 3. Small to moderate amount of ascites. 4. Subcentimeter too small to characterize hypodense lesions in each kidney and in the body of the sp pamela. 5. Small hiatal hernia.
--- NOTE | 2020-02-05 16:31 | PRG ---
DATE OF SERVICE: 02/05/2020 SUBJECTIVE: Ms. Moore feels about the same today. She just had a CAT scan. OBJECTIVE: VITAL SIGNS: Her temperature max 99, temperature current 98.2, pulse 100, blood pressure 152/87. ABDOMEN: Nontender, protuberant and firm. There is some mild tenderness throughout. There is no guarding. LABORATORY DATA: White count 13, hemoglobin 11.6, and platelet count 644. Sodium 136, potassium 3.4, BUN and creatinine are [address] scan of abdomen and pelvis gallbladder, normal liver, normal portal vein, small bilateral pleural effusions wall thickening throughout the colon secondary to pseudomembranous colitis, normal small bowel, diverticulosis coli, ascites. ASSESSMENT: Severe Clostridium difficile colitis. Continue antibiotics. Avoid narcotics and antimotility agents. Ambulate and eat. If the patient would take a turn for the worse, surgical consultation for toxic megacolon will be indicated, although she shows no indication of that at this time. Job ID: [id number]
[2020-02-05] MEDS: Enoxaparin Sodium 40 MG/0.4 ML SYRINGE SC SCH (20:31)
[2020-02-05] MEDS: Rosuvastatin 20 MG TAB PO SCH (20:31)
[2020-02-05] MEDS: hydrOXYzine 25 MG TAB PO PRN (21:13)
[2020-02-06] MEDS: metroNIDAZOLE 500 MG in Premix Bag 1 BAG IVPB SCH ×3 (00:35→17:08)
[2020-02-06] MEDS: CALCIUM GLUCONATE IVPB SCH ×2 (02:18→09:13)
[2020-02-06] MEDS: SODIUM CHLORIDE 0.9% IVPB SCH ×2 (02:18→09:13)
[2020-02-06] MEDS: Vancomycin HCl 25 MG/ML Oral PO SCH ×4 (03:37→21:13)
[2020-02-06] MEDS: Albumin 25% 25 GM/100 ML BOT IVPB SCH ×2 (03:39→09:19)
[2020-02-06] MEDS: Levothyroxine Sodium 25 MCG TAB PO SCH (05:38)
[2020-02-06 06:23] LABS: #Eosinphils 0.2 thou/uL (0.0-0.7); #Lymphocytes 1.2 thou/uL (1.20-3.40); #Monocytes 1.1 thou/uL (0.11-0.59); #Neutrophils 10.2 thou/uL (1.40-6.50); %Basophils 0.2 % (0.0-1.0); %Eosinophils 1.9 % (0.0-10.0); %Lymphocytes 9.6 % (21.0-51.0); %Monocytes 8.9 % (0.0-10.0); %Neutrophils 79.4 % (42.0-75.0); Hemoglobin 10.8 g/dL (12.0-16.0); Mean Corpuscular HGB CONC 32.7 g/dL (32.0-36.0); Mean Corpuscular Hemoglobin 30.7 pg (27.0-31.0); Mean Corpuscular Volume 93.8 fL (78.0-98.0); Mean Platelet Volume 6.5 fL (7.4-10.4); Platelet Count 648 thou/uL (130-400); RBC Distribution Width 13.1 % (11.5-14.5); Red Blood Cell (RBC) Count 3.51 mill/uL (4.20-5.40); White Blood Cell (WBC) Count 12.8 thou/uL (4.8-10.8)
[2020-02-06 06:43] LABS: ALT (SGPT) 29 U/L (8-55); AST (SGOT) 34 U/L (5-34); Albumin 3.5 g/dL (3.4-4.8); Alkaline Phosphatase 49 U/L (40-110); Anion Gap 13 mmol/L (10-20); BUN (Urea Nitrogen) Less than 4 mg/dL (9.8-20.1); Bilirubin, Total 0.5 mg/dL (0.2-1.2); Calc. Creatinine Clearance 97 mL/min (70-130); Calcium 7.5 mg/dL (7.8-10.44); Carbon Dioxide 18 mmol/L (23-31); Chloride 107 mmol/L (98-107); Estimated GFR-MDRD Greater than 90; Globulin 1.2 g/dL (2.4-3.5); Glucose 100 mg/dL (83-110); Potassium 3.2 mmol/L (3.5-5.1); Protein, Total 4.7 g/dL (6.0-8.3); Sodium 135 mmol/L (136-145)
[2020-02-06] MEDS: Lactinex Tablet PO SCH ×3 (09:06→21:12)
[2020-02-06] MEDS: Calcium Carbonate 500 MG ChewTAB PO SCH ×3 (09:06→21:13)
[2020-02-06] MEDS: Saccharomyces boulardii 250 MG CAP PO SCH ×2 (09:06→21:13)
[2020-02-06] MEDS: Famotidine 20 MG TAB PO SCH ×2 (09:07→21:13)
[2020-02-06] MEDS ORDERED: Potassium Chloride 10 MEQ TAB PO SCH ×2 (13:00→21:00)
--- NOTE | 2020-02-06 16:11 | PRG ---
DATE OF SERVICE: 02/06/2020 SUBJECTIVE: Ms. Moore is eating a lot better. She states that she is able to get some sleep last night finally and time. She still is wearing pull-up. OBJECTIVE: VITAL SIGNS: Temperature is 98.1, pulse 98, blood pressure 161/73. ABDOMEN: Soft, but protuberant, somewhat tight. Bowel sounds are positive. LABORATORY DATA: White count 12.8, hemoglobin 10.8, platelet count is still elevated, but has plateaued max at 695, now at 648. ASSESSMENT: Severe C difficile colitis. CT scan showed severe thickening throughout the entire colon. RECOMMENDATIONS: Continue IV Flagyl, probiotic, and p.o. vancomycin. Advance diet and activity as tolerated. Job ID: [id number]
[2020-02-06] MEDS: Rosuvastatin 20 MG TAB PO SCH (21:13)
[2020-02-06] MEDS: Enoxaparin Sodium 40 MG/0.4 ML SYRINGE SC SCH (21:14)
[2020-02-06] MEDS: hydrOXYzine 25 MG TAB PO PRN (22:34)
[2020-02-07] MEDS: metroNIDAZOLE 500 MG in Premix Bag 1 BAG IVPB SCH ×3 (01:03→17:18)
[2020-02-07] MEDS: Vancomycin HCl 25 MG/ML Oral PO SCH ×4 (04:34→21:40)
[2020-02-07] MEDS: Levothyroxine Sodium 25 MCG TAB PO SCH (05:23)
[2020-02-07 06:05] LABS: #Basophils 0.1 thou/uL (0.0-0.2); #Eosinphils 0.4 thou/uL (0.0-0.7); #Lymphocytes 1.4 thou/uL (1.20-3.40); #Monocytes 1.3 thou/uL (0.11-0.59); #Neutrophils 10.2 thou/uL (1.40-6.50); %Basophils 0.4 % (0.0-1.0); %Eosinophils 2.7 % (0.0-10.0); %Lymphocytes 10.4 % (21.0-51.0); %Monocytes 9.7 % (0.0-10.0); %Neutrophils 76.8 % (42.0-75.0); Hemoglobin 12.6 g/dL (12.0-16.0); Mean Corpuscular HGB CONC 33.1 g/dL (32.0-36.0); Mean Corpuscular Hemoglobin 30.8 pg (27.0-31.0); Mean Corpuscular Volume 93.1 fL (78.0-98.0); Mean Platelet Volume 6.8 fL (7.4-10.4); Platelet Count 786 thou/uL (130-400); RBC Distribution Width 13.4 % (11.5-14.5); Red Blood Cell (RBC) Count 4.07 mill/uL (4.20-5.40); White Blood Cell (WBC) Count 13.3 thou/uL (4.8-10.8)
[2020-02-07 06:17] LABS: Anion Gap 14 mmol/L (10-20); BUN (Urea Nitrogen) Less than 4 mg/dL (9.8-20.1); Calc. Creatinine Clearance 90 mL/min (70-130); Calcium 7.7 mg/dL (7.8-10.44); Carbon Dioxide 20 mmol/L (23-31); Chloride 106 mmol/L (98-107); Estimated GFR-MDRD Greater than 90; Glucose 107 mg/dL (83-110); Magnesium 1.7 mg/dL (1.6-2.6); Potassium 3.3 mmol/L (3.5-5.1); Sodium 137 mmol/L (136-145)
[2020-02-07] MEDS: Lactinex Tablet PO SCH ×3 (08:13→21:39)
[2020-02-07] MEDS: Calcium Carbonate 500 MG ChewTAB PO SCH ×3 (08:14→21:40)
[2020-02-07] MEDS: Famotidine 20 MG TAB PO SCH ×2 (08:14→21:39)
[2020-02-07] MEDS: Saccharomyces boulardii 250 MG CAP PO SCH ×2 (08:15→21:40)
[2020-02-07] MEDS: Potassium Chloride 20 MEQ TAB PO SCH ×2 (08:22→21:40)
--- NOTE | 2020-02-07 11:05 | PRG ---
DATE OF SERVICE: 02/07/2020 SUBJECTIVE: Ms. Moore got up 4 times last night for a bowel movement. She is without any pain, but she is still pretty protuberant. OBJECTIVE: VITAL SIGNS: Pulse is around 100, temperature is 98, blood pressure 158/88. LUNGS: Clear. ABDOMEN: Protuberant and dull to percussion. LABORATORY DATA: White count is 13.5, hemoglobin is 12, and platelet count 786. ASSESSMENT AND RECOMMENDATIONS: Severe Clostridium difficile colitis, hospital day #10. CAT scan showed very severe edema mainly in the right colon versus the left. Anasarca. Albumin is up to 3.5. She remains on IV Flagyl and p.o. vancomycin. This was increased to 250. We do not think there is much to be gained by adding Dificid, but we will ask Dr. Ferrer to see the patient and see what he thinks. At this point in time, she does not need a surgery, but she is not getting well very fast. Job ID: [id number]
[2020-02-07] MEDS ORDERED: Fidaxomicin 200 MG TAB PO SCH (14:15)
--- NOTE | 2020-02-07 20:08 | CON ---
DATE OF CONSULTATION: 02/07/2020 REASON FOR CONSULTATION: C. difficile colitis. HISTORY OF PRESENT ILLNESS: A 75-year-old, who underwent C-spine decompression and fusion at the beginning of January, C3-C4, C4-C5, and C5-C6. The patient subsequently developed nausea, vomiting, weakness, and diarrhea. Close to January 27, she was seen at [facility] and she tested COVID negative there. Given Imodium and Zofran. Continued having diarrhea through the week and then fever. Then, she was seen by Dr. Pop in the office, who was found tachycardic, hypotensive and therefore, she was admitted. On arrival, white cell count 21,000 with 468 platelets and 74% bands with a marked leukoerythroblastic response. Her creatinine was elevated at 2.12 and C. diff test was positive on the for both toxin and antigen. Blood cultures, no growth in 5 days, so on the January 28, the patient was given IV fluids, IV antimicrobial therapy with the thought that urinary tract infection was the probable source of sepsis. On January 31, Dr. Butler was consulted, then by that time, the C. diff diagnosis had been made and she was started on oral vancomycin and the flouroquinolone and ceftriaxone were discontinued. She was given Flagyl in addition to oral vancomycin as well. The dose of vancomycin was increased to 250 four times a day, so at this time, she is feeling some improvement. She is still having diarrhea intermittently and no headaches. No visual symptoms. Neck is not bothering her. No respiratory symptoms. Voiding without difficulty. She has swelling in the lower extremities. PAST MEDICAL HISTORY: Includes C-spine stenosis with recent decompressive surgery with fusion, hypertension, vitamin D deficiency, hypothyroidism, GERD, osteoporosis, and anxiety. PAST SURGICAL HISTORY: As above plus cataracts. FAMILY HISTORY: Hypertension and depression. SOCIAL HISTORY: . Never smoker. ALLERGIES: CODEINE. CURRENT MEDICATIONS: 1. Floranex. 2. Tums. 3. Lovenox. 4. Pepcid. 5. Atarax. 6. Synthroid. 7. Ativan. 8. Flagyl. 9. Vancomycin 250 q.6 hours. 10. Zoloft. PHYSICAL EXAMINATION: VITAL SIGNS: Afebrile, BP 120/80, heart rate 99, respiratory rate 18, and O2 saturation 96. SKIN: With no areas of skin breakdown. Peripheral IV access. She is voiding in the toilet, bedside commode. Does not appear in distress. No lymphadenopathy. HEENT: Ocular movements conjugate. Oral cavity is not remarkable. NECK: Supple. No jugular venous distention. LUNGS: Symmetric clear breath sounds. HEART: S1 and S2. Regular rate. No S3 or S4. ABDOMEN: Distended. Diminished bowel sounds, but no tenderness noted. No bladder distention. EXTREMITIES: No joint inflammatory activity. She has 2 to 3+ edema in lower extremities. Pulses 1+ in dorsalis pedis. Plantar responses are flexor. GENERAL: Awake, alert, and oriented, follows commands. Recollection is normal. Speech is normal. LABORATORY DATA: The latest sodium 137, creatinine 0.54, serum total protein 4.7, and albumin 3.5. Urinalysis with 21 to 50 wbc's. SARS-COV PCR not detected. She had a CT abdomen and pelvis with diffuse wall thickening from cecum to rectum. ASSESSMENT AND PLAN: C-spine stenosis, recent surgery with decompressive fusion and now sees severe Clostridium difficile colitis. She has LYNDSEY score of 3 at least probably 4 and with pancolitis. We will increase vancomycin to 500 q.6 hours. Add Dificid, although it is not a proven intervention for severe cases, but in her case, she is pretty close to developing toxic megacolon. Still with marked bandemia and white cell count elevation although there has been some improvement. Fecal matter transplantation has been used and cases for acute Clostridium difficile unresponsive to usual therapies, but is not yet proven concept. Job ID: [id number]
[2020-02-07] MEDS: Fidaxomicin 200 MG TAB PO SCH (21:39)
[2020-02-07] MEDS: Enoxaparin Sodium 40 MG/0.4 ML SYRINGE SC SCH (21:40)
[2020-02-07] MEDS: Rosuvastatin 20 MG TAB PO SCH (21:40)
[2020-02-07] MEDS: hydrOXYzine 25 MG TAB PO PRN (21:41)
[2020-02-08] MEDS: metroNIDAZOLE 500 MG in Premix Bag 1 BAG IVPB SCH ×3 (00:46→18:00)
[2020-02-08] MEDS: Vancomycin HCl 25 MG/ML Oral PO SCH ×4 (03:29→21:10)
[2020-02-08] MEDS: Levothyroxine Sodium 25 MCG TAB PO SCH (05:59)
[2020-02-08 06:11] LABS: #Basophils 0.1 thou/uL (0.0-0.2); #Eosinphils 0.2 thou/uL (0.0-0.7); #Lymphocytes 1.4 thou/uL (1.20-3.40); #Monocytes 1.2 thou/uL (0.11-0.59); #Neutrophils 9.4 thou/uL (1.40-6.50); %Basophils 0.5 % (0.0-1.0); %Monocytes 10.1 % (0.0-10.0); %Neutrophils 76.4 % (42.0-75.0); Mean Corpuscular HGB CONC 32.3 g/dL (32.0-36.0); Mean Corpuscular Hemoglobin 30.2 pg (27.0-31.0); Mean Corpuscular Volume 93.4 fL (78.0-98.0); Mean Platelet Volume 6.6 fL (7.4-10.4); Platelet Count 831 thou/uL (130-400); RBC Distribution Width 13.5 % (11.5-14.5); Red Blood Cell (RBC) Count 3.97 mill/uL (4.20-5.40); White Blood Cell (WBC) Count 12.3 thou/uL (4.8-10.8)
[2020-02-08 06:38] LABS: Anion Gap 10 mmol/L (10-20); BUN (Urea Nitrogen) 4 mg/dL (9.8-20.1); Calc. Creatinine Clearance 88 mL/min (70-130); Calcium 7.8 mg/dL (7.8-10.44); Carbon Dioxide 24 mmol/L (23-31); Chloride 106 mmol/L (98-107); Estimated GFR-MDRD Greater than 90; Glucose 104 mg/dL (83-110); Potassium 3.7 mmol/L (3.5-5.1); Sodium 136 mmol/L (136-145)
[2020-02-08] MEDS: Fidaxomicin 200 MG TAB PO SCH ×2 (08:04→21:09)
[2020-02-08] MEDS: Saccharomyces boulardii 250 MG CAP PO SCH ×2 (08:05→21:10)
[2020-02-08] MEDS: Potassium Chloride 20 MEQ TAB PO SCH ×2 (08:05→21:09)
[2020-02-08] MEDS: Calcium Carbonate 500 MG ChewTAB PO SCH ×4 (08:05→21:10)
[2020-02-08] MEDS: Lactinex Tablet PO SCH ×3 (08:05→21:10)
[2020-02-08] MEDS: Famotidine 20 MG TAB PO SCH ×2 (08:05→21:08)
--- NOTE | 2020-02-08 16:59 | PRG ---
DATE OF SERVICE: 02/08/2020 SUBJECTIVE: Feeling better. Less stooling. More appetite. Less abdominal cramps. OBJECTIVE: VITAL SIGNS: Normal. ABDOMEN: Softer, not tender. Bowel sounds are normal. LUNGS: Clear. HEART: S1, S2. Regular rate. NEURO: Nonfocal. LABORATORY DATA: White cell count is at 12.3 with 76% neutrophils. Creatinine 0.55. ASSESSMENT/DISCUSSION: C-spine stenosis, recent surgery, decompressive fusion, severe Clostridium difficile colitis, Balta score of 3, at least pancolitis with improvement, now on full dose of vancomycin 500 q.6h plus Dificid plus Flagyl. Should be able to go home soon on a vancomycin taper. May need FMT. Job ID: [id number]
[2020-02-08] MEDS: Rosuvastatin 20 MG TAB PO SCH (21:08)
[2020-02-08] MEDS: Enoxaparin Sodium 40 MG/0.4 ML SYRINGE SC SCH (21:10)
[2020-02-08] MEDS: hydrOXYzine 25 MG TAB PO PRN (21:10)
[2020-02-09] MEDS: metroNIDAZOLE 500 MG in Premix Bag 1 BAG IVPB SCH ×3 (01:08→17:10)
[2020-02-09] MEDS: Vancomycin HCl 25 MG/ML Oral PO SCH ×4 (03:19→21:04)
[2020-02-09 05:55] LABS: #Basophils 0.1 thou/uL (0.0-0.2); #Eosinphils 0.4 thou/uL (0.0-0.7); #Lymphocytes 1.3 thou/uL (1.20-3.40); #Neutrophils 7.7 thou/uL (1.40-6.50); %Basophils 1.2 % (0.0-1.0); %Eosinophils 3.5 % (0.0-10.0); %Lymphocytes 12.1 % (21.0-51.0); %Monocytes 9.7 % (0.0-10.0); %Neutrophils 73.6 % (42.0-75.0); Hemoglobin 11.5 g/dL (12.0-16.0); Mean Corpuscular HGB CONC 32.8 g/dL (32.0-36.0); Mean Corpuscular Hemoglobin 30.9 pg (27.0-31.0); Mean Corpuscular Volume 94.2 fL (78.0-98.0); Mean Platelet Volume 6.7 fL (7.4-10.4); Platelet Count 868 thou/uL (130-400); RBC Distribution Width 13.7 % (11.5-14.5); Red Blood Cell (RBC) Count 3.72 mill/uL (4.20-5.40); White Blood Cell (WBC) Count 10.4 thou/uL (4.8-10.8)
[2020-02-09 06:03] LABS: Anion Gap 14 mmol/L (10-20); BUN (Urea Nitrogen) 4 mg/dL (9.8-20.1); Calc. Creatinine Clearance 91 mL/min (70-130); Calcium 8.2 mg/dL (7.8-10.44); Carbon Dioxide 20 mmol/L (23-31); Chloride 106 mmol/L (98-107); Estimated GFR-MDRD Greater than 90; Glucose 98 mg/dL (83-110); Potassium 4.1 mmol/L (3.5-5.1); Sodium 136 mmol/L (136-145)
[2020-02-09] MEDS: Levothyroxine Sodium 25 MCG TAB PO SCH (06:22)
[2020-02-09] MEDS: Fidaxomicin 200 MG TAB PO SCH ×2 (08:59→21:05)
[2020-02-09] MEDS: Calcium Carbonate 500 MG ChewTAB PO SCH ×3 (08:59→21:06)
[2020-02-09] MEDS: Famotidine 20 MG TAB PO SCH ×2 (08:59→21:07)
[2020-02-09] MEDS: Potassium Chloride 20 MEQ TAB PO SCH ×2 (08:59→21:07)
[2020-02-09] MEDS: Lactinex Tablet PO SCH ×3 (09:00→21:31)
[2020-02-09] MEDS: Saccharomyces boulardii 250 MG CAP PO SCH ×2 (09:00→21:06)
--- NOTE | 2020-02-09 14:22 | PRG ---
DATE OF SERVICE: 02/08/2020 SUBJECTIVE: Ms. Moore reports that she is feeling a lot better today. She has had decrease in frequency of bowel movements to about every 4 or 5 hours. The stools are less voluminous than before, still watery. Abdominal discomfort has greatly subsided. She is not having any nausea. She has been tolerating her diet. Dr. Ferrer increased her oral vancomycin to 500 mg q.6 hours and added Dificid 200 mg twice daily, yesterday. OBJECTIVE: VITAL SIGNS: Temperature 98.2, pulse 98, blood pressure 136/83, 96% oxygen saturation on room air. GENERAL: No acute distress. HEART: Regular rate and rhythm. LUNGS: Clear to auscultation bilaterally. ABDOMEN: Mild distention, tympanitic. Bowel sounds are present though hypoactive. Nontender to palpation throughout. EXTREMITIES: No peripheral edema. LABORATORY STUDIES: WBC down to 12.3, platelets up to 831, hemoglobin 12.0. Sodium 136, potassium 3.7, BUN 4, creatinine 0.55, glucose 104. ASSESSMENT AND PLAN: Severe Clostridium difficile colitis, hospital day #11. Appreciate the assistance of Dr. Ferrer. Oral vancomycin dose has been increased to 500 mg q.6 hours and Dificid 200 mg twice daily has been added. She also remains on the IV Flagyl. She has had great symptomatic improvement over the past couple of days, which is encouraging, though note, thrombocytopenia continues to worsen. Would continue with current treatment for now. Continue to monitor clinically. Anticipate hospital discharge on a vancomycin taper once symptoms have further improved. Job ID: [id number]
--- NOTE | 2020-02-09 17:28 | PRG ---
DATE OF SERVICE: 02/09/2020 SUBJECTIVE: Ms. Moore is improving. She has had 5 stools per day over the last couple of days with more substance. She is tolerating a regular diet. OBJECTIVE: VITAL SIGNS: Temperature 98.2, pulse 96, blood pressure 141/83. GENERAL: She is in no acute distress. Alert and oriented x3. LUNGS: Clear to auscultation bilaterally. HEART: Regular rate and rhythm without murmur. ABDOMEN: Soft, nontender, and nondistended. Bowel sounds are present. EXTREMITIES: No lower extremity edema. LABORATORY DATA: White blood cell count 10.4, hemoglobin 11.5, platelets 868. Creatinine 0.53. IMPRESSION: Clostridium difficile colitis. She has been on vancomycin 500 mg q.6 hours, Dificid 200 mg twice daily, and IV Flagyl. She is finally showing clinical improvement. RECOMMENDATIONS: 1. Would anticipate that she would complete a 10-day course of Dificid. 2. She also, on discharge, to go home on a vancomycin taper. 3. She is clinically improving and tolerating a regular diet and ambulating with physical therapy, so it would hope that she should be ready to discharge home in the next couple of days. Job ID: [id number]
[2020-02-09] MEDS: Enoxaparin Sodium 40 MG/0.4 ML SYRINGE SC SCH (21:06)
[2020-02-09] MEDS: Rosuvastatin 20 MG TAB PO SCH (21:07)
[2020-02-10] MEDS: metroNIDAZOLE 500 MG in Premix Bag 1 BAG IVPB SCH ×2 (00:26→09:50)
[2020-02-10] MEDS: Vancomycin HCl 25 MG/ML Oral PO SCH ×2 (04:00→11:37)
[2020-02-10] MEDS: Levothyroxine Sodium 25 MCG TAB PO SCH (05:00)
[2020-02-10 06:38] LABS: #Basophils 0.1 thou/uL (0.0-0.2); #Eosinphils 0.4 thou/uL (0.0-0.7); #Lymphocytes 1.6 thou/uL (1.20-3.40); #Monocytes 0.9 thou/uL (0.11-0.59); #Neutrophils 7.3 thou/uL (1.40-6.50); %Basophils 0.8 % (0.0-1.0); %Eosinophils 4.1 % (0.0-10.0); %Lymphocytes 15.2 % (21.0-51.0); %Monocytes 8.6 % (0.0-10.0); %Neutrophils 71.3 % (42.0-75.0); Hemoglobin 12.5 g/dL (12.0-16.0); Mean Corpuscular HGB CONC 32.2 g/dL (32.0-36.0); Mean Corpuscular Volume 96.3 fL (78.0-98.0); Mean Platelet Volume 6.6 fL (7.4-10.4); Platelet Count 848 thou/uL (130-400); RBC Distribution Width 13.7 % (11.5-14.5); Red Blood Cell (RBC) Count 4.02 mill/uL (4.20-5.40); White Blood Cell (WBC) Count 10.3 thou/uL (4.8-10.8)
[2020-02-10 07:09] LABS: Anion Gap 13 mmol/L (10-20); BUN (Urea Nitrogen) 4 mg/dL (9.8-20.1); Calc. Creatinine Clearance 88 mL/min (70-130); Calcium 8.3 mg/dL (7.8-10.44); Carbon Dioxide 22 mmol/L (23-31); Chloride 106 mmol/L (98-107); Estimated GFR-MDRD Greater than 90; Glucose 90 mg/dL (83-110); Potassium 4.4 mmol/L (3.5-5.1); Sodium 137 mmol/L (136-145)
[2020-02-10 07:20] VITALS: BP 158/93; TEMP 98.1
[2020-02-10] MEDS: Lactinex Tablet PO SCH (09:14)
[2020-02-10] MEDS: Famotidine 20 MG TAB PO SCH (09:15)
[2020-02-10] MEDS: Saccharomyces boulardii 250 MG CAP PO SCH (09:15)
[2020-02-10] MEDS: Potassium Chloride 20 MEQ TAB PO SCH (09:15)
[2020-02-10] MEDS: Fidaxomicin 200 MG TAB PO SCH (09:15)
[2020-02-10] MEDS: Calcium Carbonate 500 MG ChewTAB PO SCH (09:15)
--- NOTE | 2020-02-11 22:53 | PQF ---
CLINICAL DOCUMENTATION CLARIFICATION FORM: Dear : Moncho Pop Date / Time: 02/11/20 3041 Please exercise your independent, professional judgment in responding to the clarification form. Clinical indicators are provided on the bottom of this form for your review Please check appropriate box(es): [ ] Acute Renal Failure (ARF) related to Sepsis [ x ] Acute Renal Failure (ARF) related to Dehydration [ ] Acute Tubular Necrosis (ATN) related to Sepsis [ ] Acute Tubular Necrosis (ATN) related to Dehydration [ ] Other diagnosis [ ] Unable to determine In addition, please specify: Present on Admission (POA): [ x ] Yes [ ] No [ ] Unable to determine Physician Signature: Date/Time: For continuity of documentation, please document condition throughout progress notes and discharge summary. Thank You. To be completed by CDI/Coding staff for physician review: Present Clinical Indicators - Signs / Symptoms / Labs Results and Location in Medical Record [X] WBC 21.0, Plt count 468, Neutrophils 12, Band 74 Laboratory 02/26 [X] BUN 28, Creatinine 2.12, GFR 23 Laboratory 02/26 [X] BUN 31, Creatinine 1.92, GFR 26 Laboratory 02/27 [X] BUN 7 Creatinine 0.55 GFR >90 Laboratory 03/01 [X] BP 94/84, Pulse 110, temp 98.2, Resp 16 Vital signs 02/26 [X] She had nausea, vomiting, general weakness, diarrhea H&P Dr Pop 01/27 p1 [X] She was found to be tachycardia, dry, hypotensive H&P Dr Pop 01/27 p1 [X] She began to run a 101 fever consistently with waxing and waning diarrhea H&P Dr Pop 01/27 p1 [X] Dehydration with early Sepsis H&P Dr Pop 01/27 p2 [X] Leukocytosis with bademia H&P Dr Pop 01/27 p3 [X] Has been here, she had leukocytosis on presentation and acute renal insuffiency Consult Manjit Cintron 03/01 Present Risk Factors Results and Location in Medical Record [X] 74 year-old Female H&P Dr Pop 01/27 p1 [X] HTN H&P Dr Pop 01/27 p1 [X] Vitamins D Deficiency H&P Dr Pop 01/27 p1 [X] Dehydration H&P Dr Pop 01/27 p2 [X] Sepsis H&P Dr Pop 01/27 p2 [X] Hyponatremia, hypokalemia H&P Dr Pop 01/27 p2 [X] UTI H&P Dr Pop 01/27 p2 [X] C diff colitis Consult Manjit Cintron 03/01 Present Treatments Results and Location in Medical Record [X] IV Ceftriaxone 1 gm JUL 11 [X] Vancomycin 250 mg oral JUL 12 [X] IVF NS 1L JUL 11 [X] IV Metronidazole 500 mg JUL 11 [X] IV Lavaquin 500 mg JUL 11 [X] GE consult Consult Manjit Cintron 03/01 CDS/Php Web Developer Signature: Lacey Coni Tyler Phone #: [phone] Date/Time: 02/11/2020 9195 This is a permanent part of the Medical Record [facility]
== END 2020-02-10 11:35 | disposition home or self-care (01) | DRG 682 ==
LOC: T4-B 11:13 → OBSVTOIN 01-29 14:34
PROVIDERS: ADMIT Specialist; ATTEND Specialist
DX: N17.9 Acute kidney failure, unspecified (principal); A41.9 Sepsis, unspecified organism; A04.72 Enterocolitis due to Clostridium difficile, not specified as recurrent; E87.1 Hypo-osmolality and hyponatremia; N39.0 Urinary tract infection, site not specified; Z98.1 Arthrodesis status; Z20.828 Contact with and (suspected) exposure to other viral communicable diseases; F41.9 Anxiety disorder, unspecified; F32.9 Major depressive disorder, single episode, unspecified; I10 Essential (primary) hypertension; E55.9 Vitamin D deficiency, unspecified; E78.5 Hyperlipidemia, unspecified; K21.9 Gastro-esophageal reflux disease without esophagitis; E03.9 Hypothyroidism, unspecified; M81.0 Age-related osteoporosis without current pathological fracture; M48.02 Spinal stenosis, cervical region; E86.0 Dehydration; E87.6 Hypokalemia; D69.6 Thrombocytopenia, unspecified; E21.3 Hyperparathyroidism, unspecified; Z98.49 Cataract extraction status, unspecified eye; Z88.5 Allergy status to narcotic agent; Z79.899 Other long term (current) drug therapy; Z79.890 Hormone replacement therapy
CPT/HCPCS: 36415; 36416; 71045; 74019; 74177; 80048; 80053; 80061; 81001; 82040; 82274; 83735; 83970; 84100; 84443; 85025; 85060; 87040; 87045; 87046; 87177; 87324; 87427; 87449; 87493; 87635; 96361; 96374; 96375; 96376; G0378; G0379; J0610; J0696; J1650; J1956; J2405; J3480; J3490; P9047; Q9967; U0003

== ENCOUNTER 2020-02-23 10:10 | Outpatient (CLI) | payer MEDICARE ==
--- NOTE | 2020-02-23 11:18 | RAD ---
CERVICAL SPINE 3 VIEWS: Date: 02/23/2020 HISTORY: Follow-up ACDF procedure. FINDINGS: Anterior fusion procedure. Anterior plate and screws transfix C3, C4, C5, and C6 with interbody impla nts at these levels. Posterior alignment is preserved. Mild posterior spondylosis is noted at C4-5 an d C5-6. There is loss of disc space at C2-3 and at C6-7. Posterior spondylosis at C6-7 is present. Slight anterolisthesis is noted at C7-T1. IMPRESSION: Postoperative and degenerative changes of the cervical spine as described. POS: AGW
== END 2020-02-23 10:11 | disposition home or self-care (01) ==
LOC: TBSIIMAG 10:10
PROVIDERS: ATTEND Physician Assistant
DX: M48.02 Spinal stenosis, cervical region (principal); M47.812 Spondylosis without myelopathy or radiculopathy, cervical region; Z98.890 Other specified postprocedural states
CPT/HCPCS: 72040

== ENCOUNTER 2020-07-12 14:56 | Outpatient (CLI) | payer MEDICARE | END 2020-07-12 14:57 | disposition home or self-care (01) | LOC: BICMAMMO 14:56 | PROVIDERS: ATTEND Specialist | DX: Z12.31 Encounter for screening mammogram for malignant neoplasm of breast (principal); Z80.3 Family history of malignant neoplasm of breast; Z91.89 Other specified personal risk factors, not elsewhere classified | CPT/HCPCS: 77063; 77067 ==

== ENCOUNTER 2021-01-23 13:15 | Outpatient (CLI) | payer MEDICARE | END 2021-01-23 13:16 | disposition home or self-care (01) | LOC: BICMAMMO 13:15 | PROVIDERS: ATTEND Internal Medicine Rheumatology | DX: M81.0 Age-related osteoporosis without current pathological fracture (principal) | CPT/HCPCS: 77080 ==

== ENCOUNTER 2022-08-01 13:14 | Outpatient (CLI) | payer OTHER | END 2022-08-01 13:15 | disposition home or self-care (01) | LOC: BICMAMMO 13:14 | PROVIDERS: ATTEND Specialist | DX: Z12.31 Encounter for screening mammogram for malignant neoplasm of breast (principal); Z80.3 Family history of malignant neoplasm of breast; Z91.89 Other specified personal risk factors, not elsewhere classified | CPT/HCPCS: 77063; 77067 ==

== ENCOUNTER 2025-01-13 10:11 | Outpatient (CLI) | payer OTHER | END 2025-01-13 10:12 | disposition home or self-care (01) | LOC: BICMAMMO 10:11 | PROVIDERS: ATTEND Internal Medicine Rheumatology | DX: M81.0 Age-related osteoporosis without current pathological fracture (principal); M85.88 Other specified disorders of bone density and structure, other site | CPT/HCPCS: 77080 ==